=== PATIENT | male | born 1980 | race Caucasian/White ===

== ENCOUNTER 2017-03-28 19:37 | Emergency (ER) | payer OTHER ==
[2017-03-28 20:23] LABS: #Basophils 0.1 thou/uL (0.0-0.2); #Eosinphils 0.1 thou/uL (0.0-0.7); #Monocytes 0.9 thou/uL (0.11-0.59); #Neutrophils 5.7 thou/uL (1.40-6.50); %Basophils 0.7 % (0.0-1.0); %Eosinophils 1.5 % (0.0-10.0); %Monocytes 10.4 % (0.0-10.0); Hematocrit 48.9 % (42.0-52.0); Mean Platelet Volume 6.6 fL (7.4-10.4); Red Blood Cell (RBC) Count 5.13 mill/uL (4.70-6.10); White Blood Cell (WBC) Count 8.8 thou/uL (4.8-10.8)
[2017-03-28 20:48] LABS: ALT (SGPT) 42 U/L (8-55); AST (SGOT) 24 U/L (5-34); Alkaline Phosphatase 34 U/L (40-150); Anion Gap 12 mmol/L (10-20); BUN (Urea Nitrogen) 16 mg/dL (8.9-20.6); Bilirubin, Total 0.4 mg/dL (0.2-1.2); Calc. Creatinine Clearance 0 mL/min (70-130); Calcium 9.1 mg/dL (7.8-10.44); Carbon Dioxide 29 mmol/L (22-29); Chloride 101 mmol/L (98-107); Estimated GFR-MDRD 80; Globulin 3.1 g/dL (2.4-3.5); Lipase 70 U/L (8-78)
--- NOTE | 2017-03-28 20:51 | RAD ---
UPRIGHT PORTABLE CHEST ONE VIEW: 03/28/17 HISTORY: 36-year-old male with chest pain. FINDINGS: Heart size is within normal limits. The bronchovascular markings are slightly prominent bilaterally but no confluent pneumonia, overt edema, or pleural effusion. IMPRESSION: No acute intrathoracic disease. POS: [facility]
[2017-03-28] MEDS ORDERED: Ondansetron HCl/PF 4 MG/2 ML Vial ONE (20:56)
[2017-03-28 20:59] LABS: Prothrombin Time 14.2 SEC (12.0-14.7)
[2017-03-28 21:02] LABS: PTT 22.5 SEC (22.9-36.1)
--- NOTE | 2017-03-28 21:47 | ULT ---
RIGHT UPPER QUADRANT ULTRASOUND: 03/28/17 HISTORY: 36-year-old male with chest pain as well as nausea and vomiting and diarrhea. The gallbladder is contracted with a somewhat thick wall. There is an irregularly shaped filling def ect within the gallbladder near the fundus which does not move, evidence for irregular shaped gallbl adder wall polyp or possibly an adherent stone. Common bile duct is 0.3 cm. Liver echotexture is wit hin normal limits. The visualized pancreas and right kidney are unremarkable. IMPRESSION: Contracted gallbladder with some gallbladder wall thickening which may well be physiologic. Irregula rly shaped nonshadowing nonmobile opacity within the gallbladder possibly a gallbladder wall polyp v ersus and adherent stone. Depending upon concern, followup nonemergent nuclear medicine hepatobiliar y scan might be of benefit for further assessment. No ductal dilatation or other acute process. POS: [facility]
[2017-03-28] MEDS ORDERED: Mag-Al 1200 mg/1200 mg/30 ML UDCUP ONE (22:02)
[2017-03-28] MEDS ORDERED: Lidocaine Viscous Sol 2% 15 ml UD Cup ONE (22:02)
--- NOTE | 2017-03-30 12:24 | EKG ---
Test Reason : Blood Pressure : / mmHG Vent. Rate : 094 BPM Atrial Rate : 094 BPM P-R Int : 146 ms QRS Dur : 082 ms QT Int : 324 ms P-R-T Axes : 039 035 -84 degrees QTc Int : 405 ms Normal sinus rhythm T wave abnormality, consider inferolateral ischemia Abnormal ECG Normal axis Confirmed by ROBY CASTRO ([id number]), general expeditor ODILIA BRADY ([id number]) on 03/30/2017 12:24:17 PM Referred By: Confirmed By:ROBY CASTRO
== END 2017-03-28 22:59 | disposition home or self-care (01) ==
LOC: ERS 19:37
DX: J01.90 Acute sinusitis, unspecified (principal); R04.2 Hemoptysis; I10 Essential (primary) hypertension; J45.909 Unspecified asthma, uncomplicated; Z79.899 Other long term (current) drug therapy
CPT/HCPCS: 71010; 76705; 80053; 82553; 83690; 84484; 85025; 85610; 85730; 93005; 96361; 96374; J2405